=== PATIENT | female | born 1960 | race Caucasian/White ===

== ENCOUNTER 2019-03-01 16:03 | Emergency (ER) | payer BC ==
[2019-03-01 18:36] LABS: ABS Eosinophils 0.1 10^3/ul (0-0.6); ABS Lymphocytes 1.6 10^3/ul (1.0-4.8); ABS Monocytes 0.4 10^3/ul (0-0.8); ABS Neutrophils 3.4 10^3/ul (1.5-7.7); Eosinophil % 1.2 %; Hematocrit 40 % (35-47); Lymphocyte % 28.5 %; Mean Corpuscular HGB Conc 35 g/dL (31-36); Mean Corpuscular Hemoglobin 32 pg (27-31); Mean Corpuscular Volume 92 fL (80-97); Mean Platelet Volume 8.5 fL (7.4-10.4); Nucleated Red Blood Cells % 0.1; Platelet Count 272 10^3/uL (150-450); Red Blood Count 4.35 10^6 /uL (3.70-4.87); Red Cell Distribution Width 13 % (10-15); White Blood Count 5.5 10^3/uL (3.5-10.8)
[2019-03-01 18:53] LABS: Albumin 4.2 g/dL (3.2-5.2); Albumin/Globulin Ratio 1.7 (1-3); BUN/Creatinine Ratio 13.3 (8-20); C Reactive Protein 1.67 mg/L (<8.01); Calcium 9.7 mg/dL (8.6-10.3); EGFR African American 65.6 (>60); EGFR Non-African American 54.2 (>60); Globulin 2.5 g/dL (2-4); Potassium 4.4 mmol/L (3.5-5.0); Total Bilirubin 0.3 mg/dL (0.2-1.0); Total Protein 6.7 g/dL (6.4-8.9)
[2019-03-01] MEDS ORDERED: Metoclopramide IV* 5 MG/ML 2 ML VIAL IV ONE (19:06)
[2019-03-01] MEDS ORDERED: diPHENhydraMINE IV* 50 MG/ML 1 ml VIAL (BENADRYL) IV ONE (19:06)
[2019-03-01] MEDS ORDERED: NS 0.9% 1000 ML** 1,000 ML IV ONE (19:06)
[2019-03-01] MEDS ORDERED: Ketorolac INJ* 30 MG/ML 1 ML VIAL IV ONE (19:09)
[2019-03-01 19:26] LABS: TSH (Thyroid Stimulating Horm) 1.61 mcIU/mL (0.34-5.60)
[2019-03-01 19:32] LABS: Urine Appearance Clear; Urine Bilirubin Negative (Negative); Urine Blood Negative (Negative); Urine Color Straw; Urine Glucose Negative (Negative); Urine Ketones Negative (Negative); Urine Nitrite Negative (Negative); Urine Protein Negative (Negative); Urine Specific Gravity 1.004 (1.010-1.030); Urine Urobilinogen Negative (Negative)
[2019-03-01 19:49] LABS: INR 0.97 (0.82-1.09)
--- NOTE | 2019-03-01 20:14 | ED ---
Complex/Multi-Sys Presentation - HPI Summary HPI Summary: Patient with history of active genital herpes outbreak complains of headache, nausea, fatigue, dizziness and imbalance 2 days. Denies history of regular headaches. Current headache is bilateral, diffuse, rated 8/10 currently, improves with Tylenol and ibuprofen. Patient started acyclovir on Saturday, missed Saturday and resumed medications today. History of recurrent herpes genital herpes outbreaks over the past year. States she has had similar symptoms with prior herpes outbreaks but has never had symptoms this severe with herpes outbreak. Denies fever, neck stiffness, vision change, unilateral weakness, facial droop, speech changes, cough, sore throat, CP, SOB, N/V/D, abdominal pain, change in urine, change in BM, vaginal symptoms. States medical history is herpes. - History Of Current Complaint Chief Complaint: EDHeadache Time Seen by Provider: 03/01/19 18:16 Hx Obtained From: Patient Onset/Duration: Gradual Onset, Lasting Days Timing: Intermittent, Lasting: Severity Currently: Moderate Severity Initially: Moderate Character: Throbbing Associated Signs And Symptoms: Positive: Dizziness, Headache, Nausea - Allergies/Home Medications Allergies/Adverse Reactions: Allergies Allergy/AdvReac Type Severity Reaction Status Date / Time clindamycin AdvReac Severe Diarrhea Verified 11/13/17 14:10 Home Medications: Home Medications Omeprazole 20 mg PO DAILY 03/01/19 [History Confirmed 03/01/19] PMH/Surg Hx/FS Hx/Imm Hx Endocrine/Hematology History: Denies: Hx Diabetes Cardiovascular History: Denies: Hx Hypertension, Hx Pacemaker/ICD History: Denies: Hx Renal Disease Sensory History: Reports: Hx Contacts or Glasses Denies: Hx Hearing Aid Opthamlomology History: Reports: Hx Contacts or Glasses EENT History: Denies: Hx Deafness Neurological History: Denies: Hx Developmental Delay Psychiatric History: Reports: Hx Eating Disorder - BED as a teenager Denies: Hx Panic Disorder, Hx of Violent Episodes Against Others - Cancer History Cancer Type, Location and Year: SKIN CARCINOMA REMOVED - Surgical History Surgery Procedure, Year, and Place: SINUS SURGERY. CATARACT SURGERY 2017. [facility] Infectious Disease History: No Infectious Disease History: Denies: Traveled Outside the [place] in Last 30 Days - Family History Known Family History: Positive: Non-Contributory - Social History Alcohol Use: Weekly Substance Use Type: Reports: None Smoking Status (MU): Never Smoked Tobacco Review of Systems Positive: Fatigue Eyes: Negative ENT: Negative Cardiovascular: Negative Respiratory: Negative Positive: Nausea Genitourinary: Negative Musculoskeletal: Negative Skin: Negative Positive: Headache Psychological: Normal All Other Systems Reviewed And Are Negative: Yes Physical Exam - Summary Physical Exam Summary: Neuro exam normal. Triage Information Reviewed: Yes Vital Signs On Initial Exam: Initial Vitals Temp Pulse Resp BP Pulse Ox 97.8 F 77 16 110/83 94 03/01/19 16:05 03/01/19 16:05 03/01/19 16:05 03/01/19 16:05 03/01/19 16:05 Vital Signs Reviewed: Yes Appearance: Positive: Well-Appearing Skin: Positive: Warm Head/Face: Positive: Normal Head/Face Inspection Eyes: Positive: Normal ENT: Positive: Normal ENT inspection Neck: Positive: Supple Respiratory/Lung Sounds: Positive: Clear to Auscultation Cardiovascular: Positive: Normal Abdomen Description: Positive: Nontender Musculoskeletal: Positive: Normal Neurological: Positive: Normal Psychiatric: Positive: Normal AVPU Assessment: Alert - Terry Coma Scale Best Eye Response: 4 - Spontaneous Best Motor Response: 6 - Obeys Commands Best Verbal Response: 5 - Oriented Coma Scale Total: 15 Diagnostics - Vital Signs Vital Signs Temp Pulse Resp BP Pulse Ox 03/01/19 19:24 97.9 F 16 03/01/19 19:23 58 98 03/01/19 18:03 98.1 F 70 20 136/91 97 03/01/19 16:05 97.8 F 77 16 110/83 94 - Laboratory Lab Results: Lab Results 03/01/19 03/01/19 03/01/19 Range/Units 18:26 18:29 19:14 WBC 5.5 (3.5-10.8) 10^3/uL RBC 4.35 (3.70-4.87) 10^6 /uL Hgb 14.0 (12.0-16.0) g/dL Hct 40 (35-47) % MCV 92 (80-97) fL MCH 32 H (27-31) pg MCHC 35 (31-36) g/dL RDW 13 (10-15) % Plt Count 272 (150-450) 10^3/uL MPV 8.5 (7.4-10.4) fL Neut % (Auto) 61.4 % Lymph % (Auto) 28.5 % [place] % (Auto) 8.0 % Eos % (Auto) 1.2 % Baso % (Auto) 0.9 % Absolute Neuts (auto) 3.4 (1.5-7.7) 10^3/ul Absolute Lymphs (auto) 1.6 (1.0-4.8) 10^3/ul Absolute Monos (auto) 0.4 (0-0.8) 10^3/ul Absolute Eos (auto) 0.1 (0-0.6) 10^3/ul Absolute Basos (auto) 0.0 (0-0.2) 10^3/ul Absolute Nucleated RBC 0.0 10^3/ul Nucleated RBC % 0.1 INR (Anticoag Therapy) (0.82-1.09) Sodium 137 (135-145) mmol/L Potassium 4.4 (3.5-5.0) mmol/L Chloride 105 (101-111) mmol/L Carbon Dioxide 29 (22-32) mmol/L Anion Gap 3 (2-11) mmol/L BUN 14 (6-24) mg/dL Creatinine 1.05 H (0.51-0.95) mg/dL Est GFR ( Amer) 65.6 (>60) Est GFR (Non-Af Amer) 54.2 (>60) BUN/Creatinine Ratio 13.3 (8-20) Glucose 107 H (70-100) mg/dL Calcium 9.7 (8.6-10.3) mg/dL Total Bilirubin 0.30 (0.2-1.0) mg/dL AST 16 (13-39) U/L ALT 16 (7-52) U/L Alkaline Phosphatase 67 (34-104) U/L C-Reactive Protein 1.67 (<8.01) mg/L Total Protein 6.7 (6.4-8.9) g/dL Albumin 4.2 (3.2-5.2) g/dL Globulin 2.5 (2-4) g/dL Albumin/Globulin Ratio 1.7 (1-3) TSH 1.61 (0.34-5.60) mcIU/mL Urine Color Straw Urine Appearance Clear Urine pH 6.0 (5-9) Ur Specific [place] 1.004 L (1.010-1.030) Urine Protein Negative (Negative) Urine Ketones Negative (Negative) Urine Blood Negative (Negative) Urine Nitrate Negative (Negative) Urine Bilirubin Negative (Negative) Urine Urobilinogen Negative (Negative) Ur Leukocyte Esterase Negative (Negative) Urine Glucose Negative (Negative) 03/01/19 Range/Units 19:20 WBC (3.5-10.8) 10^3/uL RBC (3.70-4.87) 10^6 /uL Hgb (12.0-16.0) g/dL Hct (35-47) % MCV (80-97) fL MCH (27-31) pg MCHC (31-36) g/dL RDW (10-15) % Plt Count (150-450) 10^3/uL MPV (7.4-10.4) fL Neut % (Auto) % Lymph % (Auto) % [place] % (Auto) % Eos % (Auto) % Baso % (Auto) % Absolute Neuts (auto) (1.5-7.7) 10^3/ul Absolute Lymphs (auto) (1.0-4.8) 10^3/ul Absolute Monos (auto) (0-0.8) 10^3/ul Absolute Eos (auto) (0-0.6) 10^3/ul Absolute Basos (auto) (0-0.2) 10^3/ul Absolute Nucleated RBC 10^3/ul Nucleated RBC % INR (Anticoag Therapy) 0.97 (0.82-1.09) Sodium (135-145) mmol/L Potassium (3.5-5.0) mmol/L Chloride (101-111) mmol/L Carbon Dioxide (22-32) mmol/L Anion Gap (2-11) mmol/L BUN (6-24) mg/dL Creatinine (0.51-0.95) mg/dL Est GFR ( Amer) (>60) Est GFR (Non-Af Amer) (>60) BUN/Creatinine Ratio (8-20) Glucose (70-100) mg/dL Calcium (8.6-10.3) mg/dL Total Bilirubin (0.2-1.0) mg/dL AST (13-39) U/L ALT (7-52) U/L Alkaline Phosphatase (34-104) U/L C-Reactive Protein (<8.01) mg/L Total Protein (6.4-8.9) g/dL Albumin (3.2-5.2) g/dL Globulin (2-4) g/dL Albumin/Globulin Ratio (1-3) TSH (0.34-5.60) mcIU/mL Urine Color Urine Appearance Urine pH (5-9) Ur Specific [place] (1.010-1.030) Urine Protein (Negative) Urine Ketones (Negative) Urine Blood (Negative) Urine Nitrate (Negative) Urine Bilirubin (Negative) Urine Urobilinogen (Negative) Ur Leukocyte Esterase (Negative) Urine Glucose (Negative) Result Diagrams: 03/01/19 18:29 03/01/19 18:26 Lab Statement: Any lab studies that have been ordered have been reviewed, and results considered in the medical decision making process. Complex Multi-Symp Course/Dx Course Of Treatment: Patient with history of active genital herpes outbreak complains of headache, nausea, fatigue, dizziness and imbalance 2 days. Denies history of regular headaches. Current headache is bilateral, diffuse, rated 8/10 currently, improves with Tylenol and ibuprofen. Patient started acyclovir on Saturday, missed Saturday and resumed medications today. History of recurrent herpes genital herpes outbreaks over the past year. States she has had similar symptoms with prior herpes outbreaks but has never had symptoms this severe with herpes outbreak. Denies fever, neck stiffness, vision change, unilateral weakness, facial droop, speech changes, cough, sore throat, CP, SOB, N/V/D, abdominal pain, change in urine, change in BM, vaginal symptoms. States medical history is herpes. Vital signs within normal limits. Labs unremarkable. CT brain unremarkable. Symptoms likely sequela of herpes outbreak. Patient headache improved with migraine cocktail. Patient advised to be diligent about taking her acyclovir. Patient understands and approves plan. - Diagnoses Provider Diagnoses: Fatigue, Headache, Nausea, Dizziness Discharge - Sign-Out/Discharge Documenting (check all that apply): Patient Departure Patient Received Moderate/Deep Sedation with Procedure: No - Discharge Plan Condition: Stable Disposition: HOME Patient Education Materials: Genital Herpes Simplex (ED), General Headache (ED) Referrals: Lo Hutton NP [Primary Care Provider] - Additional Instructions: Alternate ibuprofen 600 mg with Tylenol 650 mg every 3 hours for headache. Drink plenty of fluids to maintain hydration. Continue to take acyclovir as directed. Follow-up with primary care. Return to the ED for any new or worsening symptoms. - Billing Disposition and Condition Condition: STABLE Disposition: Home
[2019-03-01] MEDS ORDERED: Acetaminophen TAB* 325 MG PO ONE (20:55)
[2019-03-01 21:07] VITALS: BP 107/52
== END 2019-03-01 21:15 | disposition home or self-care (01) ==
LOC: ED 16:03
DX: R51 Headache (principal); R53.83 Other fatigue; R11.0 Nausea; R42 Dizziness and giddiness; Z87.42 Personal history of other diseases of the female genital tract; Z85.89 Personal history of malignant neoplasm of other organs and systems; Z88.1 Allergy status to other antibiotic agents
CPT/HCPCS: 36415; 70450; 80053; 81003; 84443; 85025; 85610; 86140; 96361; 96374; 96375; 99282; A9270-GY; J1200; J1885; J2765